=== PATIENT | female | born 1975 | race Caucasian/White ===

== ENCOUNTER 2023-08-23 18:06 | Emergency (ER) | payer MEDICAID ==
[~2023-08-23] VITALS: Ht 154.9 cm; Wt 72.0 kg
[2023-08-23 18:14] VITALS: BP 100/78; PULSE 100; RESP 18; TEMP 98.9; O2SAT 100
[2023-08-23] MEDS ORDERED: FAMOTIDINE 20MG/2ML VIAL IV STA (18:33)
[2023-08-23] MEDS ORDERED: MAGNESIUM/ALUMINUM HYDROXIDE/SIMETHICONE 30ML UDC PO STA (18:33)
[2023-08-23] MEDS ORDERED: SODIUM CHLORIDE 0.9% 1,000 ML IV ONE (18:45)
[2023-08-23] MEDS ORDERED: ONDANSETRON HCL 4MG/2ML INJ IV ONE (18:45)
[2023-08-23 20:24] LABS: BASOPHILS % 0.8 % (0.0-2.0); EOSINOPHILS % 0.7 % (0.0-5.0); HEMATOCRIT. 44.9 % (36.0-48.0); LYMPHOCYTES % 22.4 % (20.0-50.0); MEAN CORPUSCULAR HEMOGLOBIN 27.5 pg (28.0-32.0); MEAN CORPUSCULAR HGB CONC 33.4 g/dL (31.0-37.0); MEAN CORPUSCULAR VOLUME 82.3 fL (81.0-99.0); MEAN PLATELET VOLUME 8.7 fl (7.4-10.4); MONOCYTES % 6.4 % (2.0-8.0); NEUTROPHILS % 69.7 % (40.0-76.0); PLATELET 348 x1000/uL (130-400); RED BLOOD CELL COUNT 5.46 mill/uL (4.2-5.4); RED CELL DISTRIBUTION WIDTH 13.9 % (11.6-14.6); WHITE BLOOD COUNT 14.8 x1000/uL (4.5-11.0)
[2023-08-23 20:37] LABS: HCG SCREEN NEGATIVE
[2023-08-23 20:57] LABS: ALANINE AMINOTRANSFERASE 21 IU/L (10-49); ASPARTATE AMINOTRANSFERASE 16 IU/L (<34); BILIRUBIN TOTAL 0.6 mg/dL (0.1-1.0); CALCIUM 9.2 mg/dL (8.7-10.4); CARBON DIOXIDE 19 mEq/L (21-32); CHLORIDE 90 mEq/L (98-107); CREATININE 0.9 mg/dL (0.6-1.0); GLUCOSE 308 mg/dL (70-105); POTASSIUM 3.6 mEq/L (3.5-5.1); PROTEIN TOTAL 8.8 g/dL (6.0-8.3); SODIUM 125 mEq/L (136-145); TROPONIN I HIGH SENSITIVITY 9 ng/L (3.0-34); UREA NITROGEN BLOOD 14 mg/dL (9-23)
[2023-08-23] MEDS ORDERED: IBUP-2029 MT (22:15)
[2023-08-23] MEDS ORDERED: FAMO-135 MT (22:15)
[2023-08-23] MEDS ORDERED: ONDA4TAB11 PO (22:15)
[2023-08-23] MEDS ORDERED: MAG-55 MT (22:15)
== END 2023-08-23 22:52 | disposition left against medical advice (07) ==
LOC: ER 18:06
DX: R10.13 Epigastric pain (principal); R11.0 Nausea
CPT/HCPCS: 80053; 82010; 84703; 83605; 83690; 85025; 84484; 36415; 99283; J7030; Z7610